=== PATIENT | female | born 1945 | race Caucasian/White ===

== ENCOUNTER 2016-10-04 11:27 | Inpatient (IN) ==
[2016-10-04] MEDS ORDERED: SODIUM CHLORIDE 0.9% 500 ML IV STA (12:16)
[2016-10-04] MEDS ORDERED: MORPHINE 2 MG/1 ML SYRINGE IV STA (12:20)
[2016-10-04 12:22] LABS: Basophils # 0.1 10*3/uL (0.0-0.2); Eosinophils # 0.1 10*3/uL (0.0-0.87); Eosinophils % 1.5 % (0.00-10.9); Hematocrit 37.6 VOL% (35.7-47.0); Hemoglobin 12.1 GM/DL (12.0-16.0); Immature Granulocytes % 0.8 %; Immature Granulocytes Absolute 0.08 #; Lymphocytes # 1.1 10*3/uL (1.4-4.0); Lymphocytes % 11.2 % (21.3-54.2); Mean Corpuscular HGB Conc 32.2 GM/DL (32-36); Mean Corpuscular Hemoglobin 29 PG (27-34); Mean Corpuscular Volume 88.7 FL (87-102); Mean Platelet Volume 9.7 FL (9.6-12.0); Monocytes # 0.6 10*3/uL (0.11-0.8); Monocytes % 5.8 % (1.7-12.7); Neutrophils # 7.7 10*3/uL (1.4-7.4); Neutrophils % 79.7 % (38.7-73.9); Platelet Count 382 T/CUMM (130-400); Red Blood Count 4.24 MC/CUMM (3.8-5.5); Red Cell Distribution Width 14.6 % (9.3-17.3); White Blood Count 9.6 T/CUMM (4-12)
[2016-10-04 12:27] LABS: PT Patient Result 10.6 SECS
[2016-10-04] MEDS ORDERED: ONDANSETRON 4 MG/2 ML VIAL IV PRN (12:30)
[2016-10-04] MEDS ORDERED: GLUCAGON 1 MG VIAL IM PRN (12:30)
[2016-10-04] MEDS ORDERED: MAGNESIUM HYDROXIDE SUSP 30 ML UDCUP PO PRN (12:30)
[2016-10-04] MEDS ORDERED: DEXTROSE 50% 25 GM/50 ML VIAL IV PRN (12:30)
[2016-10-04 12:32] LABS: Magnesium 2.4 MG/DL (1.8-2.4); Osmolality,Calculated 276.7 MOS/KG (273-304); Potassium 3.6 MMOL/L (3.5-5.1)
[2016-10-04] MEDS ORDERED: MORPHINE 2 MG/1 ML SYRINGE ONE (12:33)
[2016-10-04] MEDS ORDERED: ONDANSETRON 4 MG/2 ML VIAL ONE (12:33)
[2016-10-04] MEDS ORDERED: ONDANSETRON 4 MG/2 ML VIAL IV STA (12:35)
--- NOTE | 2016-10-04 12:36 | Emergency Department Note ---
IMariano Gwan, am scribing for, and in the presence of, Corbin Crisostomo M.D. 11:57. IKranthi Howard T, M.D., personally performed the services described in this documentation, ascribed by Sujata Quintana in my presence, and it is both accurate and complete 235 . Arrival - Arrival Chief Complaint: Fall Stated Complaint: fall ED Nursing Triage Note: c/o falling today around 1000., patient arrived to ED 9 via stretcher., patient on backboard., traction noted to the left leg., newspaper illustrator states upon their arrival- patient had obvious deformity noted to the mid- femur area., full sensation to toes., received 10 mg morphine/ 4 mg zofran at the patient's house ,patient states she slipped. denies loc., GCS 15 , left pedal pulse noted at time of arrival per doppler obtained by Kelly ,20 g to the left hand patrol captain., Mode of Arrival: Stretcher Limitations: No Limitations Source: Patient, Family, Old Records Reviewed, RN Notes Reviewed Time Seen by Provider: 10/04/16 11:48 - History of Present Illness HPI Narrative: Patient is a 70 y/o female who was brought into the ED via EMS on backboard and leg brace present on LLE s/p fall at home. Daughter stated that she found patient on the floor with her left lower extremity behind her head. Daughter then alerted EMS. Upon arrival, EMS reports that pt had obvious deformity to mid femur area, sensation to toes. En route pt was given Morphine 10mg and Zofran 4mg. During exam pt stated that she was coming out of the bathroom going into her bed room when she slipped and fell in the hallway. Patient denies any LOC or hitting her head. Patient has a PMHx of broken right wrist. She stated that she is not in any pain now while in ED. Onset (ago): hour(s) Consistency: constant Severity: severe Review of System - Review of System 12 point system: reviewed and no additional remarkable complaints except as stated - Review of System Constitutional: Absent: chills, diaphoresis, fever Eyes: Absent: discharge, pain Head/Ears/Nose/Throat: Absent: earache Respiratory: Absent: cough Cardiovascular: Absent: chest pain, palpitations, edema Gastrointestinal: Absent: abdominal pain, nausea, vomiting, diarrhea Genitourinary female: Absent: dysuria Musculoskeletal: Present: leg pain (left leg deformity s/p fall ). Absent: arm pain, back pain Skin: Absent: rash, lesions Neurological: Absent: headache, weakness Medical,Surgical,& Family Hx - Medical History Cardio: History of: Hypertension, Pacemaker Endocrine: History of: Diabetes Mellitus (NIDDM), Dyslipidemia - Social History Smoking Status: Smoker, status unknown Frequency of Alcohol Use: None Type of Drug Use: None Exam Vital Signs: Vital Signs Temperature 97.0 F L 10/04/16 11:41 Pulse Rate 65 10/04/16 11:41 Respiratory Rate 25 H 10/04/16 11:41 Blood Pressure 111/71 10/04/16 11:41 O2 Sat by Pulse Oximetry 96 10/04/16 11:41 - General General appearance: alert, in no apparent distress - Head Head exam: Present: atraumatic, normocephalic - Eye Eye exam: Present: normal appearance, PERRL, EOMI - ENT ENT exam: Present: normal oropharynx, mucous membranes moist, TM's normal bilaterally, normal external ear exam - Respiratory Respiratory exam: Present: normal lung sounds bilaterally. Absent: respiratory distress - Cardiovascular Cardiovascular exam: Present: regular rate, normal rhythm, normal heart sounds. Absent: murmur - Extremities Exam Extremities exam: Present: other (obvious deformity and rotation noted to LLE). Absent: full ROM - Neurological Exam Neurological exam: Present: alert, oriented X3 - Psychiatric Psychiatric exam: Present: normal affect, normal mood - Skin Skin exam: Present: other (obvious deformity and roation noted to LLE) Course Course Narrative: Medical decision making: Closed left distal femur fracture, otherwise patient appears stable no acute distress, discussed with orthopedics Dr. Swartz who will admit with cardiology consult and likely take her to the operating room tomorrow morning to repair the injury. Results - Labs CBC & BMP: 10/04/16 11:51 10/04/16 11:51 Lab Results: I have reviewed the patients labs Labs: Laboratory Tests 10/04/16 11:51 WBC 9.6 RBC 4.24 Hgb 12.1 Hct 37.6 Plt Count 382 Neut % (Auto) 79.7 H Lymph % (Auto) 11.2 L Baso % (Auto) 1.0 H Neut # (Auto) 7.7 H Lymph # (Auto) 1.1 L Laboratory Tests 10/04/16 11:51 INR 1.0 PT Patient/Control Mix 10.6 Disposition Clinical Impression: Closed comminuted intra-articular fracture of distal end of left femur Case discussed with: patient, patient's family Disposition: Disch/Xfer-Ipshort Term Hos Condition: Stable Time of Disposition: 12:36
--- NOTE | 2016-10-04 12:39 | EKG Report ---
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
--- NOTE | 2016-10-04 12:41 | XRay Report ---
Referring Physician: Corbin Crisostomo Exam: XR left knee 2 views, XR left femur 2 views Date: October 04, 2016 at 11:56 AM Reason: Status post fall, left leg deformity, initial encounter Comparison: None Findings: There is a comminuted, displaced fracture of the distal diaphysis of the left femur, extending to the metaphysis. No definite articular involvement is seen. There is minimal degenerative change at the left hip, but the remaining left femur appears intact. There is mild marginal spurring at the patella, medial compartment and tibial spines. The joint spaces at the left knee appear well maintained. No additional acute fractures are identified at the left knee. There is diffuse soft tissue swelling at the left lower extremity. Impression: 1. There is a comminuted, displaced fracture of the distal diaphysis of the left femur, extending to the metaphysis. 2. Mild degenerative change at the left knee. PROCEDURE INTERPRETED AT [facility] DEPARTMENT OF RADIOLOGY Final Report Signed by: Dr. Blaine Olsen
--- NOTE | 2016-10-04 12:43 | XRay Report ---
Referring Physician: Corbin Crisostomo Exam: XR pelvis AP 1 or 2 Views Date: October 04, 2016 at 11:56 AM Reason: Status post fall, left leg deformity, initial encounter Comparison: Left femur x-rays October 04, 2016 Findings: Devices partially obscure the pelvis and left hip. However, the joint spaces at both hips appear well maintained. No acute fracture, dislocation or osseous destructive process is identified. The SI joints appear intact. Degenerative change is noted at the lower lumbar spine. Impression: Devices partially obscure the pelvis and left hip. However, no acute fracture is identified at the pelvis. PROCEDURE INTERPRETED AT [facility] DEPARTMENT OF RADIOLOGY Final Report Signed by: Dr. Blaine Olsen
--- NOTE | 2016-10-04 13:12 | CT Report ---
Referring Physician: Corbin Crisostomo Exam: CT left femur without contrast Date: October 04, 2016 Reason: Fracture of left femur Comparison: Left femur x-rays October 04, 2016 Technique: Axial images of the left femur were obtained without the use of contrast. Sagittal and coronal reformatted images were also acquired. Total DLP was 889.9 mGy*cm. Findings: There is a comminuted, displaced fracture of the distal diaphysis of the left femur. This has a spiral component and extends downward to the intracondylar notch of the left knee. The intra-articular extension is not well visualized by x-rays since the fracture is nondisplaced in this region. There is a questionable minimal impaction type injury at the medial tibial plateau. There is also a minimal marginal spurring at the weightbearing medial femoral condyle. Mild to moderate tricompartmental marginal spurring is present, and there is subchondral sclerosis and subchondral cyst formation at the patellofemoral joint, especially at the lateral compartment. There is hemarthrosis in the left suprapatellar region. Impression: 1. There is a comminuted, displaced fracture of the distal diaphysis of the left femur. The fracture extends downward to the intercondylar notch of the left knee where it is nondisplaced. 2. Questionable minimal impaction type injury at the medial tibial plateau. 3. Moderate degenerative change at the left knee. 4. Left suprapatellar hemarthrosis. The CT exam was performed using one or more of the following dose reduction techniques: Automated exposure control and adjustment of the mA and/or kV according to patient size. PROCEDURE INTERPRETED AT [facility] DEPARTMENT OF RADIOLOGY Final Report Signed by: Dr. Blaine Olsen
[2016-10-04] MEDS: LACTATED RINGERS 1,000 ML IV SCH (14:50)
--- NOTE | 2016-10-04 17:36 | Orthopedic History & Physical ---
History of Present Illness Chief complaint: Left femur fracture History of present illness: Ms. Sommer is a 70 year old female who fell this morning while cleaning up her house. Her children visit her on Sundays. She sustained a left distal third femur fracture with a nondisplaced intercondylar split. She has a long history of knee and joint problems. She has had a left knee arthroscopy about 10 years ago at [place]. She lives alone and ambulates mostly with a walker. She denies any shortness of breath or loss of consciousness. She states that over the last several weeks she has had some problems with lightheadedness. She has had a recent UTI and infected subcutaneous cyst. She is completed her antibiotics and her cyst has resolved. She denies any numbness or tingling or any other injury. Past medical history significant for diabetes, hypertension, CHF, pacemaker placement, chronic low back pain and degenerative arthritis. Past surgical history is significant for hysterectomy, knee arthroscopy, cardiac catheterization. Allergies: Codeine She denies the use of tobacco and alcohol. Review of systems are otherwise negative. Alert and oriented Lungs clear to auscultation Heart regular rate and rhythm Spine, bilateral upper extremities and right lower extremity are nontender and without deformity. Left lower extremity is immobilized with a knee immobilizer. She can flex and extend her toes And ankle. Foot and ankle motors are all 5 out of 5. Sensation is grossly intact to light touch. She has palpable dorsalis pedis and posterior tib pulse. Capillary refill is less than 2 seconds. The patient' s knee immobilizer was adjusted for a pressure spot at the distal aspect of the brace. Radiographs pelvis, femur and knee were reviewed and compared with her femoral CT. The patient has a comminuted distal third femur fracture with a nondisplaced intercondylar split. She has severe knee osteoarthritis. Impression: #1 Left closed comminuted distal third femur fracture with a nondisplaced intercondylar split #2 primary knee osteoarthritis Plan: I have advised open reduction fixation of her left femur with a distal femoral locking plate. Will obtain preoperative medical management from cardiology. I have discussed the risks and benefits and all questions were answered. Risks include but not limited to infection, bleeding, anesthesia, persistent pain, need for further operation, heart attack, stroke, etc. Avila will be placed. Also plan on obtaining a portable chest x-ray. Postoperatively, we will plan swing bed placement at [facility]. Home Medications Medication Instructions Recorded Confirmed Type Amiodarone HCl 200 mg PO DAILY 10/04/16 10/04/16 History Amlodipine Besylate 5 mg PO DAILY 10/04/16 10/04/16 History Duloxetine HCl [Duloxetine] 60 mg PO DAILY 10/04/16 10/04/16 History Furosemide Tab [Lasix Tab] 20 mg PO QPM 10/04/16 10/04/16 History Furosemide Tab [Lasix Tab] 40 mg PO QAM 10/04/16 10/04/16 History Gabapentin Cap/Tab [Neurontin 300 mg PO BID 10/04/16 10/04/16 History Cap/Tab] HYDROcodone/ACETAMIN 10-325 [[place] 1 tablet PO Q8H PRN 10/04/16 10/04/16 History 10-325] Metformin HCl 500 mg PO BID W/MEALS 10/04/16 10/04/16 History Pantoprazole Sodium 40 mg PO AC SUPPER 10/04/16 10/04/16 History Potassium Chloride 10 meq PO PC BREAKFAST 10/04/16 10/04/16 History Simvastatin 20 mg PO QPM 10/04/16 10/04/16 History Spironolactone [Aldactone] 12.5 mg PO DAILY 10/04/16 10/04/16 History hydroCHLOROthiazide 12.5 mg PO DAILY 10/04/16 10/04/16 History [Hydrochlorothiazide] Allergies Allergy/AdvReac Type Severity Reaction Status Date / Time codeine Allergy ITCHING Verified 10/04/16 12:35 12 point system: reviewed and no additional remarkable complaints except as stated Medical,Surgical,& Family Hx - Medical History Cardio: History of: CHF, Hypertension, Pacemaker, PVD HEENT: History of: Eye Problem, Dental Problems No history of: Ear Problem, Oral Cancer Endocrine: History of: Diabetes Mellitus (NIDDM), Dyslipidemia Rheumatology: History of;: Gout, Rheumatoid Arthritis Respiratory: No history of: Obstructive Sleep Apnea Genitourinary: No history of: Recurring Urinary Tract Infections Gastrointestinal: History of: Diverticulitis/ Diverticulosis, GERD Comment Only: GI Problems (esophagus "STRETCHED") Musculoskeletal: History of: Back/Neck Problems No history of: Amputation Hematology: No history of: Blood Transfusion Reaction Other: No history of: Anesthesia Reactions - Surgical History Cardiac Surgeries: Sugical HX of: Cardiac Catheterization (5 years ago) Thoracic Surgeries: Patient denies;: Organ Transplant, Lobectomy Neurologic Surgeries: Patient denies: Neurologic Surgery HEENT Surgeries: Patient denies: Thyroid Surgery Abdominal Surgeries: Surgical HX of: Abdominal Surgery (HYSTERECTOMY), Cholecystectomy, Colonoscopy, EGD Patient denies: Hernia Repair Reproductive Surgeries: Surgical HX of;: Hysterectomy - Family History Family History: Reports;: Family Diabetes, Family Heart Disease, Family Hypertension, Family Stroke - Social History Smoking Status: Never smoker Frequency of Alcohol Use: None Type of Drug Use: None Exam - Constitutional Vitals: Period Temp Pulse Resp BP Sys/Torres Pulse Ox Last 24 Hr 97.4 F-97.5 F 60-112 13-19 90-106/58-73 96-99 Results - Labs CBC & BMP: 10/04/16 11:51 10/04/16 11:51
[2016-10-04] MEDS: INSULIN REGULAR 100 UNIT/ML SUBCUT SCH ×2 (18:05→22:38)
[2016-10-04 18:09] LABS: Apearance,Urine Slightly Hazy (Clear); Bilirubin,Urine Negative (Negative); Blood, Urine Negative (Negative); Glucose,Urine (UA) Negative (Negative); Hyaline Casts,Urine 26 /LPF (0-3); Ketones,Urine Negative (Negative); Mucus,Urine Occasional /LPF (Occasional); Nitrite,Urine Negative (Negative); Protein,Urine Negative; RBC,Urine <1 /HPF (0-4); Squamous Epithelial Cell,Urine Occasional /HPF (0-10); Urine Color Yellow (Yellow); Urine Urobilinogen < 2.0 EU/DL (0.2-1.0); WBC,Urine 1 /HPF (0-6)
--- NOTE | 2016-10-04 18:37 | XRay Report ---
Referring Physician: Renzo Swartz Jr Exam: XR chest 1V portable Date: October 04, 2016 at 6:02 PM Reason: Preoperative respiratory evaluation, femur fracture, history of congestive heart failure Comparison: Chest PA and lateral March 23, 2012 Findings: The cardiac silhouette is normal in size, but a cardiac pacing device is in place. No focal consolidation, pneumothorax or pleural effusion is identified. No acute osseous process is seen. Impression: No acute cardiopulmonary process is identified. PROCEDURE INTERPRETED AT [facility] DEPARTMENT OF RADIOLOGY Final Report Signed by: Dr. Blaine Olsen
[2016-10-04] MEDS ORDERED: FUROSEMIDE 40 MG TABLET PO SCH (19:00)
[2016-10-04] MEDS ORDERED: SIMVASTATIN 20 MG TABLET PO SCH (19:00)
[2016-10-04] MEDS: MORPHINE 2 MG/1 ML SYRINGE IV PRN (20:42)
[2016-10-04] MEDS: GABAPENTIN 300 MG CAPSULE PO SCH (20:46)
[2016-10-05] MEDS: LACTATED RINGERS 1,000 ML IV SCH ×2 (04:12→11:26)
[2016-10-05] MEDS ORDERED: LORazepam 1 MG TABLET PO ONE (05:37)
[2016-10-05] MEDS ORDERED: FAMOTIDINE 20 MG TABLET PO ONE (05:37)
[2016-10-05] MEDS: MORPHINE 2 MG/1 ML SYRINGE IV PRN (07:08)
[2016-10-05 07:12] LABS: Calcium 8.4 MG/DL (8.5-10.1); Osmolality,Calculated 278.5 MOS/KG (273-304); Potassium 3.9 MMOL/L (3.5-5.1)
--- NOTE | 2016-10-05 07:45 | Cardiology Consult Note ---
Assessment and Plan (1) Atrial fib/flutter, transient Status: Acute Current Visit: Yes (2) SSS (sick sinus syndrome) Status: Acute Current Visit: Yes (3) Pre-op evaluation Status: Acute Assessment and plan: 1. 70-year-old overweight WF with controlled hypertension, treated diabetes, paroxysmal atrial fibrillation (maintaining normal sinus rhythm on amiodarone), with history of bradycardia/SSS status post remote pacemaker placement, with negative heart catheterization 2011, negative myocardial skin thousand 14, now status post comminuted femur fracture needing surgical intervention. 2. Normal TSH noted in 2016; we will repeat this 3. Episodes of modest dizziness in the last couple weeks and she had a urinary tract infection; she does not report any dizziness prior to falling and having her fracture but her memory is not good in this regard. 4. Her [id number] score is 2; she is not on anticoagulation. She did have a fall February 2016 but felt this was because her slipper caught on a piece of wood and caused her to stumble. 5. I see nothing to suggest CAD or heart failure issues 6. She should be low risk for cardiovascular complications in the perioperative period 7. I will have her pacemaker interrogated while she is here 8. We will follow with you Current Visit: Yes History of Present Illness - Consult Narrative History of present illness: Ms. Sommer is a 70 year old female followed by Dr. Vázquez who was admitted after falling and fracturing her leg, needing orthopedic intervention today. She will poorly had UTI and had some "powerful antibiotics" a couple weeks ago, has had some occasional episodes of dizziness during the last couple weeks. She had a fall February 2016 related to "my fuzzy slippers caught on some lumber ". She does not report dizziness prior to her fall which caused her fracture. She reports she was wearing socks on her hardwood floors thinks that may have contributed to the problem. She has not had any chest discomfort shortness of breath presyncope syncope or swelling. Her episodes of modest dizziness may have an orthostatic component but she thinks "it may be minor". She does not describe vertigo. She may have had a DVT during but none since that time. She did not take any blood thinner after that. She denies any history of TIA or stroke. She is not any blood clots or bleeding problems in many years. CC: Renzo Swartz Jr., - Home Medications and Allergies Home Medications: Home Medications Medication Instructions Recorded Confirmed Type Amiodarone HCl 200 mg PO DAILY 10/04/16 10/04/16 History Amlodipine Besylate 5 mg PO DAILY 10/04/16 10/04/16 History Duloxetine HCl [Duloxetine] 60 mg PO DAILY 10/04/16 10/04/16 History Furosemide Tab [Lasix Tab] 20 mg PO QPM 10/04/16 10/04/16 History Furosemide Tab [Lasix Tab] 40 mg PO QAM 10/04/16 10/04/16 History Gabapentin Cap/Tab [Neurontin 300 mg PO BID 10/04/16 10/04/16 History Cap/Tab] HYDROcodone/ACETAMIN 10-325 [[place] 1 tablet PO Q8H PRN 10/04/16 10/04/16 History 10-325] Metformin HCl 500 mg PO BID W/MEALS 10/04/16 10/04/16 History Pantoprazole Sodium 40 mg PO AC SUPPER 10/04/16 10/04/16 History Potassium Chloride 10 meq PO PC BREAKFAST 10/04/16 10/04/16 History Simvastatin 20 mg PO QPM 10/04/16 10/04/16 History Spironolactone [Aldactone] 12.5 mg PO DAILY 10/04/16 10/04/16 History hydroCHLOROthiazide 12.5 mg PO DAILY 10/04/16 10/04/16 History [Hydrochlorothiazide] Allergies/Adverse Reactions: Allergies Allergy/AdvReac Type Severity Reaction Status Date / Time codeine Allergy ITCHING Verified 10/04/16 12:35 Medical,Surgical,& Family Hx - Medical History Cardio: History of: CHF, Hypertension, Pacemaker, PVD HEENT: History of: Eye Problem, Dental Problems No history of: Ear Problem, Oral Cancer Endocrine: History of: Diabetes Mellitus (NIDDM), Dyslipidemia Rheumatology: History of;: Gout, Rheumatoid Arthritis Respiratory: No history of: Obstructive Sleep Apnea Genitourinary: No history of: Recurring Urinary Tract Infections Gastrointestinal: History of: Diverticulitis/ Diverticulosis, GERD Comment Only: GI Problems (esophagus "STRETCHED") Musculoskeletal: History of: Back/Neck Problems No history of: Amputation Hematology: No history of: Blood Transfusion Reaction Other: No history of: Anesthesia Reactions - Surgical History Cardiac Surgeries: Sugical HX of: Cardiac Catheterization (5 years ago) Thoracic Surgeries: Patient denies;: Organ Transplant, Lobectomy Neurologic Surgeries: Patient denies: Neurologic Surgery HEENT Surgeries: Patient denies: Thyroid Surgery Abdominal Surgeries: Surgical HX of: Abdominal Surgery (HYSTERECTOMY), Cholecystectomy, Colonoscopy, EGD Patient denies: Hernia Repair Reproductive Surgeries: Surgical HX of;: Hysterectomy - Family History Family History: Reports;: Family Diabetes, Family Heart Disease, Family Hypertension, Family Stroke - Social History Smoking Status: Never smoker Frequency of Alcohol Use: None Type of Drug Use: None Physical Examination Vital Signs Temp Pulse Resp BP Pulse Ox 97.0 F L 65 20 111/71 88 L 10/04/16 11:28 10/04/16 11:28 10/04/16 11:28 10/04/16 11:28 10/04/16 11:28 General: Present: Appears Well, No Apparent Distress, Other (flat affect) HEENT: Present: Normocephaly Cardiac: Present: Reg Rate and Rhythm. Absent: Systolic Murmur, Diastolic Murmur Lungs: Present: Normal Exam Abdomen: Present: Soft. Absent: Tender Extremities: Present: No Edema. Absent: Normal Gait, Edema (trace) Result/EKG - Labs CBC & BMP: 10/04/16 11:51 10/05/16 05:24 Labs: Laboratory Results - last 24 hr 10/04/16 10/04/16 10/04/16 17:25 17:49 22:11 Sodium Potassium Chloride Carbon Dioxide Anion Gap BUN Creatinine GFR Calculation BUN/Creatinine Ratio Glucose POC Glucose 189 H 132 H Calculated Osmolality Calcium Urine Color Yellow Urine Appearance Slightly hazy Urine pH 5.0 Ur Specific [place] 1.010 Urine Protein Negative Urine Glucose (UA) Negative Urine Ketones Negative Urine Blood Negative Urine Nitrate Negative Urine Bilirubin Negative Urine Urobilinogen < 2.0 H Urine Leukocytes Negative Urine RBC <1 Urine WBC 1 Ur Squamous Epith Cells Occasional Hyaline Casts 26 Urine Mucus Occasional Ur Culture Indicated? Not indicated 10/05/16 10/05/16 05:24 06:56 Sodium 139 Potassium 3.9 Chloride 98 Carbon Dioxide 32 Anion Gap 12.9 BUN 14 Creatinine 1.10 H GFR Calculation 64 BUN/Creatinine Ratio 12.00 Glucose 114 H POC Glucose 139 H Calculated Osmolality 278.5 Calcium 8.4 L Urine Color Urine Appearance Urine pH Ur Specific [place] Urine Protein Urine Glucose (UA) Urine Ketones Urine Blood Urine Nitrate Urine Bilirubin Urine Urobilinogen Urine Leukocytes Urine RBC Urine WBC Ur Squamous Epith Cells Hyaline Casts Urine Mucus Ur Culture Indicated? Quality Measures - Stroke Symptom Onset Unknown: No
[2016-10-05] MEDS: INSULIN REGULAR 100 UNIT/ML SUBCUT SCH (08:27)
[2016-10-05 08:56] LABS: Basophils % 0.4 % (0.0-0.8); Eosinophils # 0.1 10*3/uL (0.0-0.87); Eosinophils % 0.5 % (0.00-10.9); Hematocrit 28.3 VOL% (35.7-47.0); Hemoglobin 8.7 GM/DL (12.0-16.0); Immature Granulocytes % 0.7 %; Immature Granulocytes Absolute 0.06 #; Lymphocytes # 0.9 10*3/uL (1.4-4.0); Lymphocytes % 9.6 % (21.3-54.2); Mean Corpuscular HGB Conc 30.7 GM/DL (32-36); Mean Corpuscular Hemoglobin 28 PG (27-34); Mean Corpuscular Volume 91.6 FL (87-102); Monocytes # 0.8 10*3/uL (0.11-0.8); Monocytes % 8.3 % (1.7-12.7); Neutrophils # 7.3 10*3/uL (1.4-7.4); Neutrophils % 80.5 % (38.7-73.9); Platelet Count 285 T/CUMM (130-400); Red Blood Count 3.09 MC/CUMM (3.8-5.5); Red Cell Distribution Width 14.6 % (9.3-17.3); White Blood Count 9.1 T/CUMM (4-12)
--- NOTE | 2016-10-05 08:57 | Orthopedic Progress Note ---
Orthopedics - Subjective Interval history: Mrs Sommer has no new issues. LLE exam is unchanged. Plan for ORIF today. All questions answered. Exam - Constitutional Vitals: Period Temp Pulse Resp BP Sys/Torres Pulse Ox Last 24 Hr 97.0 F-97.6 F 60-112 13-22 89-114/58-73 90-99 Results - Labs CBC & BMP: 10/04/16 11:51 10/05/16 05:24 Quality Measures - Stroke Symptom Onset Unknown: No
[2016-10-05] MEDS ORDERED: FUROSEMIDE 40 MG TABLET PO SCH (09:00)
[2016-10-05] MEDS ORDERED: AMIODARONE 200 MG TABLET PO SCH (09:00)
[2016-10-05] MEDS ORDERED: hydroCHLOROthiazide 12.5 MG CAPSULE PO SCH (09:00)
[2016-10-05] MEDS ORDERED: DULoxetine 30 MG CAPSULE PO SCH (09:00)
[2016-10-05] MEDS ORDERED: amLODIPine 5 MG TABLET PO SCH (09:00)
[2016-10-05] MEDS ORDERED: SPIRONOLACTONE 25 MG TABLET PO SCH (09:00)
[2016-10-05] MEDS ORDERED: POTASSIUM CHLORIDE 10 MEQ TABLET PO SCH (09:00)
[2016-10-05] MEDS: GABAPENTIN 300 MG CAPSULE PO SCH (11:27)
[2016-10-05] MEDS ORDERED: DOPamine 800 MG/250 ML PREMIX IV SCH (11:35)
[2016-10-05] MEDS ORDERED: EPINEPHrine 1 MG/ML VIAL ONE ×3 (11:35→12:07)
[2016-10-05 11:38] LABS: Alanine Aminotransferase 11 U/L (13-56); Albumin 2.6 G/DL (3.4-5.0); Alkaline Phosphatase 73 U/L (45-117); Aspartate Amino Transferase 18 U/L (0-37); Blood Urea Nitrogen 14 MG/DL (7-18); Calcium 8.5 MG/DL (8.5-10.1); Glucose 242 MG/DL (74-106); Potassium 4.7 MMOL/L (3.5-5.1); Sodium 136 MMOL/L (136-145); Total Protein 5.5 G/DL (6.4-8.3); Troponin I Only < 0.015 NG/ML (0.00-0.045)
[2016-10-05 11:44] LABS: ABG Base Excess -4.2 MMOL/L (-2.5-2.5); ABG HCO3 20.4 MMOL/L (20-26); ABG Oxygen Saturation 58.7 % (95-100); ABG PO2 46.4 MM HG (80-95); ABG TCO2 27.3 MMOL/L (23-27); Glucose Heart Surgery 368 MG/DL (74-106); Hematocrit Heart Surgery 23.9 PERCENT (37-47); Hemoglobin Heart Surgery 7.7 G/DL (12.0-16.0); Potassium Heart/CVR 3.2 MMOL/L (3.5-5.1)
[2016-10-05 11:45] LABS: ABG PCO2 93.9 MM HG (35-48); ABG PH 7.075 (7.35-7.45)
[2016-10-05 11:46] LABS: ABG Base Excess -0.4 MMOL/L (-2.5-2.5); ABG HCO3 28.6 MMOL/L (20-26); ABG Oxygen Saturation 66.2 % (95-100); ABG PO2 46.1 MM HG (80-95); ABG TCO2 30.9 MMOL/L (23-27)
[2016-10-05] MEDS: SODIUM BICARBONATE 50 MEQ/50 ML SYRINGE IV PRN ×6 (11:46→12:39)
[2016-10-05 11:49] LABS: ABG PH 7.206 (7.35-7.45)
[2016-10-05] MEDS ORDERED: NOREPINEPHRINE 4 MG/4 ML VIAL IV ONE (11:53)
[2016-10-05] MEDS: EPINEPHrine 1 MG/10 ML SYRINGE IV PRN ×5 (11:53→12:38)
[2016-10-05] MEDS ORDERED: NOREPINEPHRINE 8 MG in SODIUM CHLORIDE 0.9% 242 ML IV SCH (11:53)
--- NOTE | 2016-10-05 12:09 | EKG Report ---
Stationary ECG Study [facility] Test Date: 10/05/2016 12:04:32 PM Pat Name: PAULINE WASHINGTON Department: Room: 111 Gender: F [employer] Boards Laminator: : 1945 Requested by: Cristina Rodriguez Order Number: [id number] Reading MD: SEVEN RAVI Intervals [place] Rate: 75 P: 999 AL: 0 QRS: -76 QRSD: 192 T: 0 QT: 304 QTc: 333 Interpretive Statements UNDETERMINED RHYTHM ELECTRONIC VENTRICULAR PACEMAKER -- CONTOUR ANALYSIS BASED ON INTRINSIC RHYTHM ABNORMAL LEFT AXIS DEVIATION RIGHT BUNDLE BRANCH BLOCK CANNOT RULE OUT SEPTAL INFARCT, PROBABLY OLD SHORT QT INTERVAL Electronically Signed On 10-11-16 22:29:04 CDT by SEVEN RAVI [email or web address]
[2016-10-05] MEDS ORDERED: MIDAZOLAM 10 MG/2 ML VIAL ONE ×2 (12:11→13:12)
--- NOTE | 2016-10-05 12:13 | XRay Report ---
Exam: XR femur LT Date: 10/05/2016 12:00 AM Comparison: 10/04/2016 Indication: Postop Technique:[Fluoroscopy time 49 seconds documented. 6 intraoperative films submitted for review. Films were obtained in the anterior and lateral projection.] Findings: Interval insertion of a lateral compression plate with multiple screws. The previously noted displaced comminuted fracture of the mid to distal left femur appears to be in satisfactory position and alignment for healing. Impression: Satisfactory internal fixation of the acute displaced fracture of the mid to distal left femur. PROCEDURE INTERPRETED AT [facility] DEPARTMENT OF RADIOLOGY Final Report Signed by: Dr. Maria Eugenia Barkley
--- NOTE | 2016-10-05 12:14 | Operative Note ---
Date of procedure: 10/05/16 Procedure: DIAGNOSIS: Left comminuted distal third femur fracture with intercondylar extension. Left knee primary osteoarthritis. PROCEDURE: Open reduction fixation left comminuted distal third femur fracture with intercondylar extension SURGEON: Maxime ANESTHESIA: Spinal converted to general PROCEDURE and FINDINGS: After adequate anesthesia was induced, the patient's left lower extremities prepped and draped in usual sterile fashion. 2 longitudinal incisions were made over the lateral aspect of her leg. The first was centered over the distal femur and the second at the femoral diaphysis at the proximal aspect of the plate. Skin, subcutaneous tissue and iliotibial band was incised. A 10 hole [employer] locking distal femoral plate was slid submuscularly from distal to proximal. A provisional reduction was obtained. The plate was secured distally with multiple locking screws. The plate was secured proximally with 4.5 mm cortical screws. Lag screws were placed obliquely through the plate securing the large medial butterfly fragment. Image intensification was used multiple planes. Deep layers were approximated with 0 Vicryl. Subcutaneous tissue tissue was closed deep with a 2-0 Vicryl runner and superficially with 3-0 Vicryl interrupted sutures. Beka were used to close the skin. During closure, the patient's oxygen saturation decreased and she was subsequently intubated. She also had problems with bradycardia and hypotension. Patient was stabilized in the operating room and then transferred to the ICU in critical condition. Surgeon / Physician: Renzo Swartz Jr. Results - Labs CBC & BMP: 10/05/16 08:22 10/05/16 11:00 Discharge Plan - Discharge Medications No Action Furosemide Tab [Lasix Tab] 40 mg PO QAM Furosemide Tab [Lasix Tab] 20 mg PO QPM Pantoprazole Sodium 40 mg PO AC SUPPER Amiodarone HCl 200 mg PO DAILY Spironolactone [Aldactone] 12.5 mg PO DAILY hydroCHLOROthiazide [Hydrochlorothiazide] 12.5 mg PO DAILY Potassium Chloride 10 meq PO PC BREAKFAST Gabapentin Cap/Tab [Neurontin Cap/Tab] 300 mg PO BID Amlodipine Besylate 5 mg PO DAILY Simvastatin 20 mg PO QPM Metformin HCl 500 mg PO BID W/MEALS Duloxetine HCl [Duloxetine] 60 mg PO DAILY HYDROcodone/ACETAMIN 10-325 [[place] 10-325] 1 tablet PO Q8H PRN PRN Reason: Pain - Follow Up or Referral - Forms/Instructions
[2016-10-05] MEDS ORDERED: HEPARIN/NACL 0.9% 2 UNITS/ML 500 ML IV ONE (12:21)
[2016-10-05 12:23] LABS: ABG Base Excess -7.7 MMOL/L (-2.5-2.5); ABG HCO3 17.8 MMOL/L (20-26); ABG Oxygen Saturation 76.8 % (95-100); ABG PO2 65.1 MM HG (80-95); ABG TCO2 24.6 MMOL/L (23-27)
[2016-10-05] MEDS ORDERED: SODIUM BICARBONATE 50 MEQ/50 ML SYRINGE IV ONE ×4 (12:23→13:10)
[2016-10-05 12:24] LABS: ABG PH 7.017 (7.35-7.45)
[2016-10-05 12:25] LABS: ABG PCO2 95.3 MM HG (35-48)
[2016-10-05] MEDS ORDERED: ENOXAPARIN 100 MG/ML SYRINGE SUBCUT ONE (12:27)
[2016-10-05] MEDS ORDERED: CALCIUM CHLORIDE 1,000 MG/10 ML SYRINGE IV ONE (12:30)
[2016-10-05] MEDS: CALCIUM CHLORIDE 1,000 MG/10 ML SYRINGE IV PRN ×2 (12:30→12:32)
[2016-10-05] MEDS ORDERED: EPINEPHrine 1 MG/10 ML SYRINGE ONE (12:34)
--- NOTE | 2016-10-05 12:53 | Anesthesia Procedures ---
Anesthesia Procedures - Arterial Line Time out performed arterial line: Yes Size (Gauge): 20 Technique used arterial line: guide wire technique Post-Procedure: line sutured into place, dry sterile dressing placed Patient tolerated procedure arterial line: other (sedated) Complications art line: none Site: left, radial
--- NOTE | 2016-10-05 12:54 | Anesthesia Procedures ---
Anesthesia Procedures - Central Venous Insert Monitors Applied: pulse oximetry, EKG, BP cuff, oxygen via (ETT) MSBT: pulse oximetry, EKG, BP cuff, oxygen via Procedure: after sterile technique was performed as outlined above, vital signs were stable throughout procedure, no apparent complications were noted, CXR to be obtained and read, , ultrasound guidance was used to identify vessel, 1.5 % lidocaine used to numb skin, 18G introducer needle was passed into vessel under direct visualizatio, 16G introducer needle was passed into vessel under direct visualizatio, 7fr double lumen catheter was passed over guidewire without difficulty, triple lumen catheter was passed over guidewire without difficulty, catheter sutured into place and the ports flushed with NS/hepflush, sterlie dressing applied including the antibiotic disc Ultrasound used: identify patency vessel, visualize needle entry to vessel Vein Cannulated: right internal juglar (pt condition declining, line inserted to give medications centrally)
--- NOTE | 2016-10-05 12:58 | Event Note ---
Patient was seen earlier by Dr. Randal Kathleen for preoperative evaluation for distal femor repair surgery. Patient had a fracture. She has a pacemaker. During her surgery she apparently became hypoxic. Surgery was completed and she was brought to the ICU. The patient became hypotensive. See anesthesia notes for details. We were asked to see the patient in the ICU. On my arrival echocardiogram was being carried out. Her left ventricular function appeared to be normal as was left ventricular size and left atrial size. Right ventricule was markedly enlarged with global hypokinesis. There was moderate severe tricuspid regurgitation with at least moderate to severely elevated right -sided pressures. Should be noted visualization in some areas with minimal. The pulmonary artery appeared to possibly have a mobile mass but again visualization was poor. Bubbles during medications being given did not shunt right to left. The patient remained hypotensive even with pressor agents including IV epinephrine and large fluid resusitation. The patient remained severely acidotic and received multiple doses of bicarbonate. The patient's arterial blood gases continued to reveal hypoxia with severely elevated PCO2 and diminished O2. The patient did not respond to resuscitative measures. Patient' s clinical findings and echocardiographic findings are consistent with acute pulmonary embolus of large mass possibly/probably involving both right and left main pulmonary arteries. A saddle embolus is certainly a possibility. The patient was never stable enough to take to CT scan and/or to the [employer] [facility] for PA grams and possible EKOS. Her pressure never significant responded to pressor agents, bicarbonate or calcium nor . Her blood pressure remained really nondetectable by arterial line and lost her rhythm with only pacemaker spikes or created inpulses. The patient's presentation and echocardiogram findings were certainly consistent with hemodynamically significant pulmonary emboli.
[2016-10-05] MEDS ORDERED: HYDROmorphone 2 MG/1 ML VIAL ONE (13:02)
[2016-10-05 13:03] LABS: Troponin I Only 0.244 NG/ML (0.00-0.045)
[2016-10-05] MEDS ORDERED: ACETAMINOPHEN 1,000 MG/100 ML VIAL IV ONE (13:10)
[2016-10-05] MEDS ORDERED: SEVOFLURANE 1 UNIT/15 MINUTE INH ONE (13:12)
[2016-10-05] MEDS ORDERED: fentaNYL 100 MCG/2 ML VIAL ONE (13:12)
[2016-10-05] MEDS ORDERED: MIDAZOLAM 2 MG/2 ML VIAL ONE (13:12)
--- NOTE | 2016-10-05 13:52 | Discharge Summary ---
Hospital Course - Hospital Course Hospital Course: Awilda Sommer was admitted with a left comminuted distal third femur fracture with intra-articular extension. Cardiology was consulted to help evaluate her medical issues. The patient underwent open reduction fixation October 05, 2016. The patient during surgery became hypoxic first followed by bradycardia and hypertension. Despite resuscitation with fluids, epinephrine, dopamine drip, bicarbonate the patient remained unstable and eventually . The patient had an echo which showed enlarged right ventricle with normal left-sided function. Her hypoxia never significantly improved. Ms. Sommer was felt to have had a large pulmonary embolic event. - Cause of Cause of : cardiopulmonary arrest secondary to suspected pulmonary embolus Discharge Plan - Discharge Data Disposition: - Discharge Medications No Action Furosemide Tab [Lasix Tab] 40 mg PO QAM Furosemide Tab [Lasix Tab] 20 mg PO QPM Pantoprazole Sodium 40 mg PO AC SUPPER Amiodarone HCl 200 mg PO DAILY Spironolactone [Aldactone] 12.5 mg PO DAILY hydroCHLOROthiazide [Hydrochlorothiazide] 12.5 mg PO DAILY Potassium Chloride 10 meq PO PC BREAKFAST Gabapentin Cap/Tab [Neurontin Cap/Tab] 300 mg PO BID Amlodipine Besylate 5 mg PO DAILY Simvastatin 20 mg PO QPM Metformin HCl 500 mg PO BID W/MEALS Duloxetine HCl [Duloxetine] 60 mg PO DAILY HYDROcodone/ACETAMIN 10-325 [[place] 10-325] 1 tablet PO Q8H PRN PRN Reason: Pain - Follow Up or Referral - Forms/Instructions Exam - Constitutional Vitals: Period Temp Pulse Resp BP Sys/Torres Pulse Ox Last 24 Hr 97.0 F-98.8 F 63-112 16-22 89-120/58-67 90-98 Discharge Results Procedures and tests throughout hospitalization: Pending Orders 10/05/16 11:43 MRSA Surveillence, Inf Control Routine 10/06/16 04:00 Comprehensive Metabolic Panel IN AM Free T4 (Free Thyroxine) IN AM Thyroid Stimulating Hormone IN AM Labs on day of discharge: Labs from last 24 hours 10/05/16 10/05/16 10/05/16 12:15 12:15 11:42 WBC RBC Hgb Hct MCV MCH MCHC RDW Plt Count MPV Neut % (Auto) Lymph % (Auto) [place] % (Auto) Eos % (Auto) Baso % (Auto) Neut # (Auto) Lymph # (Auto) [place] # (Auto) Eos # (Auto) Baso # (Auto) Immature Gran % Nucleated RBC % Immature Gran # Nucleated RBCs # ABG pH 7.017 L* D 7.075 L* ABG pCO2 95.3 H* 93.9 H* ABG pO2 65.1 L 46.4 L ABG HCO3 17.8 L 20.4 ABG Total CO2 24.6 27.3 H ABG O2 Saturation 76.8 L 58.7 L ABG Base Excess -7.7 L -4.2 L Hemoglobin 7.7 L Hematocrit 23.9 L Sodium Potassium 3.2 L Chloride Carbon Dioxide Anion Gap BUN Creatinine GFR Calculation BUN/Creatinine Ratio Glucose 368 H POC Glucose Calculated Osmolality Calcium Total Bilirubin AST ALT Alkaline Phosphatase Total Creatine Kinase 111 CK-MB (CK-2) 1.3 Troponin I 0.244 H D Total Protein Albumin Globulin Albumin/Globulin Ratio Urine Color Urine Appearance Urine pH Ur Specific [place] Urine Protein Urine Glucose (UA) Urine Ketones Urine Blood Urine Nitrate Urine Bilirubin Urine Urobilinogen Urine Leukocytes Urine RBC Urine WBC Ur Squamous Epith Cells Hyaline Casts Urine Mucus Ur Culture Indicated? 10/05/16 10/05/16 10/05/16 11:20 11:00 08:22 WBC 9.1 RBC 3.09 L D Hgb 8.7 L D Hct 28.3 L MCV 91.6 MCH 28 MCHC 30.7 L RDW 14.6 Plt Count 285 D MPV 10.0 Neut % (Auto) 80.5 H Lymph % (Auto) 9.6 L [place] % (Auto) 8.3 Eos % (Auto) 0.5 Baso % (Auto) 0.4 Neut # (Auto) 7.3 Lymph # (Auto) 0.9 L [place] # (Auto) 0.8 Eos # (Auto) 0.1 Baso # (Auto) 0.0 Immature Gran % 0.7 Nucleated RBC % 0.0 Immature Gran # 0.06 Nucleated RBCs # 0.00 ABG pH 7.206 L* ABG pCO2 73.8 H* ABG pO2 46.1 L ABG HCO3 28.6 H ABG Total CO2 30.9 H ABG O2 Saturation 66.2 L ABG Base Excess -0.4 Hemoglobin Hematocrit Sodium 136 Potassium 4.7 Chloride 98 Carbon Dioxide 26 Anion Gap 16.7 H BUN 14 Creatinine 1.40 H GFR Calculation 47 BUN/Creatinine Ratio 10.00 Glucose 242 H POC Glucose Calculated Osmolality 280.0 Calcium 8.5 Total Bilirubin 0.60 AST 18 ALT 11 L Alkaline Phosphatase 73 Total Creatine Kinase 132 CK-MB (CK-2) < 1.0 Troponin I < 0.015 Total Protein 5.5 L Albumin 2.6 L Globulin 2.9 Albumin/Globulin Ratio 0.8 L Urine Color Urine Appearance Urine pH Ur Specific [place] Urine Protein Urine Glucose (UA) Urine Ketones Urine Blood Urine Nitrate Urine Bilirubin Urine Urobilinogen Urine Leukocytes Urine RBC Urine WBC Ur Squamous Epith Cells Hyaline Casts Urine Mucus Ur Culture Indicated? 10/05/16 10/05/16 10/04/16 06:56 05:24 22:11 WBC RBC Hgb Hct MCV MCH MCHC RDW Plt Count MPV Neut % (Auto) Lymph % (Auto) [place] % (Auto) Eos % (Auto) Baso % (Auto) Neut # (Auto) Lymph # (Auto) [place] # (Auto) Eos # (Auto) Baso # (Auto) Immature Gran % Nucleated RBC % Immature Gran # Nucleated RBCs # ABG pH ABG pCO2 ABG pO2 ABG HCO3 ABG Total CO2 ABG O2 Saturation ABG Base Excess Hemoglobin Hematocrit Sodium 139 Potassium 3.9 Chloride 98 Carbon Dioxide 32 Anion Gap 12.9 BUN 14 Creatinine 1.10 H GFR Calculation 64 BUN/Creatinine Ratio 12.00 Glucose 114 H POC Glucose 139 H 132 H Calculated Osmolality 278.5 Calcium 8.4 L Total Bilirubin AST ALT Alkaline Phosphatase Total Creatine Kinase CK-MB (CK-2) Troponin I Total Protein Albumin Globulin Albumin/Globulin Ratio Urine Color Urine Appearance Urine pH Ur Specific [place] Urine Protein Urine Glucose (UA) Urine Ketones Urine Blood Urine Nitrate Urine Bilirubin Urine Urobilinogen Urine Leukocytes Urine RBC Urine WBC Ur Squamous Epith Cells Hyaline Casts Urine Mucus Ur Culture Indicated? 10/04/16 10/04/16 17:49 17:25 WBC RBC Hgb Hct MCV MCH MCHC RDW Plt Count MPV Neut % (Auto) Lymph % (Auto) [place] % (Auto) Eos % (Auto) Baso % (Auto) Neut # (Auto) Lymph # (Auto) [place] # (Auto) Eos # (Auto) Baso # (Auto) Immature Gran % Nucleated RBC % Immature Gran # Nucleated RBCs # ABG pH ABG pCO2 ABG pO2 ABG HCO3 ABG Total CO2 ABG O2 Saturation ABG Base Excess Hemoglobin Hematocrit Sodium Potassium Chloride Carbon Dioxide Anion Gap BUN Creatinine GFR Calculation BUN/Creatinine Ratio Glucose POC Glucose 189 H Calculated Osmolality Calcium Total Bilirubin AST ALT Alkaline Phosphatase Total Creatine Kinase CK-MB (CK-2) Troponin I Total Protein Albumin Globulin Albumin/Globulin Ratio Urine Color Yellow Urine Appearance Slightly hazy Urine pH 5.0 Ur Specific [place] 1.010 Urine Protein Negative Urine Glucose (UA) Negative Urine Ketones Negative Urine Blood Negative Urine Nitrate Negative Urine Bilirubin Negative Urine Urobilinogen < 2.0 H Urine Leukocytes Negative Urine RBC <1 Urine WBC 1 Ur Squamous Epith Cells Occasional Hyaline Casts 26 Urine Mucus Occasional Ur Culture Indicated? Not indicated DS: Provider Date of admission: 10/04/16 12:30 Primary care physician: . No PCP Attending physician on admission: Renzo Swartz Jr., Consults: 10/04/16 14:42 Consult to Pharmacy [CONS] Routine Reason for Pharmacy Consult: Adjust Meds Renal Funct Discharging clinician: Renzo Swartz Jr., Expected date of discharge: 10/05/16
[2016-10-05 15:46] VITALS: BP 49/30
--- NOTE | 2016-10-05 15:48 | ECHO Report ---
Awilda Sommer Exam Date: 10/05/2016 12:08 Referring Physician: Technologist: Randi Oliver RDCS Age: 70 Ht (in): 68 Wt (lb): 225 Gender: F Exam Location: [facility] Echo Indications: Post Op fracture femur, Low Sats, Afib - transient, SSS with pacemaker, NIDDM, Essential (primary) hypertension, Presence of cardiac pacemaker BP: 70 / 54 HR: 74 Rhythm: Other Technical Quality: IMPRESSIONS Technically adequate study 1-2+ left atrial enlargement; 3+ right ventricular enlargement with moderate to severe hypokinesis 1+ concentric LVH Normal LV systolic function with ejection fraction has been to be 65- 70% 4+ tricuspid regurgitation with RVSP 43 mmHg plus RAP MEASUREMENTS (Male / Female) Normal Values 2D ECHO LV Diastolic Diameter PLAX 3.6 cm 4.2 - 5.9 / 3.9 - 5.3 cm LV Systolic Diameter PLAX 2.4 cm LV Fractional Shortening PLAX 34.2 % IVS Diastolic Thickness 1.1 cm 0.6 - 1.0 / 0.6 - 0.9 cm LVPW Diastolic Thickness 1.1 cm 0.6 - 1.0 / 0.6 - 0.9 cm RV Internal Dim ED PLAX 4.6 cm Aortic Root Diameter 4.0 cm LA Systolic Diameter LX 3.4 cm 3.0 - 4.0 / 2.7 - 3.8 cm DOPPLER TR Peak Velocity 328.0 cm/s TR Peak Gradient 43.0 mmHg FINDINGS Left Ventricle Normal left ventricular cavity size. Mild left ventricular hypertrophy. Left ventricular ejection fraction is estim Right Ventricle Moderately increased right ventricular size. Catheter/pacemaker wire visualized in the right ventricle. Right Atrium Moderately increased right atrial size. Catheter/pacemaker wire in the right atrial cavity. Left Atrium Mitral Valve Morphologically normal mitral valve without significant stenosis or prolapse. There is no mitral regurgitation. Aortic Valve Morphologically normal aortic valve without significant sclerosis or stenosis. There is no aortic regurgitation. Tricuspid Valve Morphologically normal tricuspid valve. Moderate tricuspid valve regurgitation. Tricuspid regurgitation velocities suggest a PAP of 53 mmHg. Pulmonic Valve Morphologically normal pulmonic valve without significant stenosis. There is no pulmonic regurgitation. Pericardium Normal pericardium without effusion. Aorta Normal ascending aorta dimension. Miguel Kathleen (Electronically Signed) Final Date: 05 Oct 2016 15:47
[2016-10-05] MEDS ORDERED: PANTOPRAZOLE 40 MG TABLET PO SCH (16:30)
[2016-10-05] MEDS ORDERED: ceFAZolin 2,000 MG in PREMIX 1 EACH IV ONE (17:23)
[2016-10-06 05:38] LABS: ABG PCO2 73.8 MM HG (35-48)
== END 2016-10-05 13:00 | disposition expired | DRG 480 ==
LOC: EDBD → EDUNIT# → N.ED 11:27 → N.EDINP 12:30 → N.3E 12:58 → N.ICU 10-05 11:38
PROVIDERS: ADMIT Orthopaedic Surgery; ATTEND Orthopaedic Surgery